=== PATIENT | male | born 1985 | race Caucasian/White ===

== ENCOUNTER → 2018-08-17 | Emergency (ER) | payer OTHER ==
[~2018-08-17] VITALS: Ht 165.1 cm; Wt 108.0 kg
[~2018-08-17] MED LIST: KETO10TA2 PO; ORPH100T PO
== END | disposition home or self-care (01) ==
LOC: ER 15:33
DX: R10.9 Unspecified abdominal pain (principal)

== ENCOUNTER 2019-10-07 09:32 | Emergency (ER) | payer OTHER ==
[~2019-10-07] VITALS: Ht 165.1 cm; Wt 91.6 kg
[2019-10-07] MEDS ORDERED: ZANTAC150 M3 PO (10:03)
== END 2019-10-07 12:16 | disposition home or self-care (01) ==
LOC: ER 09:32
DX: K52.9 Noninfective gastroenteritis and colitis, unspecified (principal)